=== PATIENT | female | born 1995 | race African-American/Black ===

== ENCOUNTER 2018-10-28 04:39 | Emergency (ER) | payer MEDICAID ==
[~2018-10-28] VITALS: Ht 162.6 cm; Wt 45.4 kg
[2018-10-28 05:05] VITALS: BP_SYST 115
--- NOTE | 2018-10-28 05:05 | NUR ---
Pt ambulatory to bed 7 for evaluation
--- NOTE | 2018-10-28 05:10 | NUR ---
Pt c/o of toothache, L upper molar for one week. Reports she has been taking ibuprofen 800 mg TID with no relief. Reports last dose was 2200. Denies n/v/d or fever. No other complaints/injuries noted. Will cont. to monitor.
--- NOTE | 2018-10-28 06:40 | NUR ---
pt not found in room or bathroom, pt has eloped.
== END 2018-10-28 06:40 | disposition left against medical advice (07) ==
LOC: SED 04:39
DX: K08.89 Other specified disorders of teeth and supporting structures (principal); Z53.21 Procedure and treatment not carried out due to patient leaving prior to being seen by health care provider